=== PATIENT | male | born 1960 | race Caucasian/White ===

== ENCOUNTER 2020-07-18 13:36 | Inpatient (IN) | payer MEDICARE, OTHER ==
[~2020-07-18] VITALS: Ht 172.7 cm; Wt 64.0 kg
[2020-07-18] MEDS ORDERED: D5NS/KCL 20MEQ 1,000 ML IV SCH (13:45)
[2020-07-18] MEDS ORDERED: LACTATED RINGER'S 1,000 ML ONE (14:33)
[2020-07-18 14:40] LABS: BASOPHILS # (AUTO) 0.1 (0.0-0.1); BASOPHILS % 0.5 % (0.0-1.0); EOSINOPHILS # (AUTO) 0.3 (0.0-0.4); HEMOGLOBIN 10.8 g/dL (14.0-18.0); LYMPHOCYTES # (AUTO) 1.3 (1.0-3.2); MEAN CORPUSCULAR HEMOGLOBIN 28.5 pg (28-32); MEAN CORPUSCULAR HGB CONC 29.2 g/dL (31-35); MEAN CORPUSCULAR VOLUME 97.6 fL (81-99); MONOCYTES # (AUTO) 1.7 (0.2-0.8); NEUTROPHILS # (AUTO) 13.1 (2.1-6.9); NEUTROPHILS % 78.7 % (38.7-80.0); PLATELET COUNT 392 x10e3/uL (140-360); RED BLOOD COUNT 3.79 x10e6/uL (4.3-5.7); RED CELL DISTRIBUTION WIDTH 17.2 % (11.7-14.4)
[2020-07-18] MEDS ORDERED: LACTATED RINGER'S 1,000 ML INJ ONE (14:45)
[2020-07-18 15:08] LABS: ALBUMIN 2.9 g/dL (3.5-5.0); ALBUMIN/GLOBULIN RATIO 0.5 (0.8-2.0); ANION GAP 27.7 mmol/L (8-16); CALCIUM 11.3 mg/dL (8.4-10.2); CREATININE, SERUM 4.2 mg/dL (0.72-1.25)
[2020-07-18 15:15] LABS: POTASSIUM 6.7 mmol/L (3.5-5.1)
[2020-07-18] MEDS ORDERED: LACTATED RINGER'S 1,000 ML INJ SCH (15:30)
[2020-07-18 15:36] LABS: BASOPHILS # (AUTO) 0.1 (0.0-0.1); BASOPHILS % 0.4 % (0.0-1.0); EOSINOPHILS # (AUTO) 0.3 (0.0-0.4); EOSINOPHILS % 2.2 % (0.0-6.0); HEMATOCRIT 33.2 % (38.2-49.6); HEMOGLOBIN 9.5 g/dL (14.0-18.0); LYMPHOCYTES # (AUTO) 1.1 (1.0-3.2); LYMPHOCYTES % 7.8 % (18.0-39.1); MEAN CORPUSCULAR HGB CONC 28.6 g/dL (31-35); MEAN CORPUSCULAR VOLUME 97.9 fL (81-99); MONOCYTES # (AUTO) 1.5 (0.2-0.8); MONOCYTES % 10.5 % (4.4-11.3); NEUTROPHILS # (AUTO) 11.2 (2.1-6.9); NEUTROPHILS % 78.4 % (38.7-80.0); PLATELET COUNT 337 x10e3/uL (140-360); RED BLOOD COUNT 3.39 x10e6/uL (4.3-5.7); RED CELL DISTRIBUTION WIDTH 17.1 % (11.7-14.4)
[2020-07-18 15:58] LABS: ALBUMIN 2.7 g/dL (3.5-5.0); ALBUMIN/GLOBULIN RATIO 0.6 (0.8-2.0); ANION GAP 27.5 mmol/L (8-16); CALCIUM 10.5 mg/dL (8.4-10.2); CREATININE, SERUM 4.04 mg/dL (0.72-1.25)
[2020-07-18 16:00] LABS: POTASSIUM 6.5 mmol/L (3.5-5.1)
[2020-07-18] MEDS ORDERED: SOD POLYSTYRENE SULFONATE SUSP 15 GM/60 ML BTL PR ONE (16:15)
[2020-07-18] MEDS ORDERED: DEXTROSE 5%/0.45% SOD CHL 1,000 ML IV ONE ×2 (16:15→16:30)
[2020-07-18] MEDS ORDERED: PIPERACILLIN/TAZO 4.5 GM 100 ML IV STA (16:18)
[2020-07-18] MEDS ORDERED: SODIUM CHLORIDE 0.9% 500ML 500 ML IV STA (16:18)
[2020-07-18] MEDS ORDERED: SODIUM CHLORIDE 0.9% 500ML 500 ML ONE (16:29)
[2020-07-18] MEDS: CEFEPIME 1GM/NS 0.9% 50 ML 50 ML IV SCH (16:45)
[2020-07-18] MEDS ORDERED: ONDANSETRON HCL INJ 2MG/ML 2ML 2 MG/ML VIAL IV PRN (17:00)
[2020-07-18] MEDS ORDERED: CEFEPIME 1GM/NS 0.9% 50 ML 50 ML IV SCH (17:00)
[2020-07-18] MEDS ORDERED: VANCOMYCIN 1GM/NS 250 ML 250 ML IV ONE (17:30)
[2020-07-18 18:40] LABS: CLARITY,URINE SL CLOUDY (CLEAR); COLOR,URINE STRAW (YELLOW); KETONES,URINE NEGATIVE (NEGATIVE); LEUKOCYTE ESTERASE ,URINE SMALL (NEGATIVE); NITRITE,URINE NEGATIVE (NEGATIVE); PROTEIN,URINE DIPSTICK 2+ (NEGATIVE); URINE UROBILINOGEN 0.2 mg/dL (0.2 - 1)
[2020-07-18 18:55] LABS: AMORPHOUS SEDIMENT,URINE MODERATE (FEW); BACTERIA,URINE MODERATE /HPF; RBC,URINE 0-5 /HPF (0-5)
[2020-07-18 19:25] LABS: ALBUMIN 2.4 g/dL (3.5-5.0); ALBUMIN/GLOBULIN RATIO 0.6 (0.8-2.0); ANION GAP 21.8 mmol/L (8-16); CALCIUM 9.6 mg/dL (8.4-10.2); CREATININE, SERUM 3.7 mg/dL (0.72-1.25)
[2020-07-18 19:26] LABS: POTASSIUM 5.8 mmol/L (3.5-5.1)
[2020-07-18] MEDS: DEXTROSE 5% 1,000 ML IV SCH (23:20)
[2020-07-19 04:00] LABS: BASOPHILS % 0.3 % (0.0-1.0); EOSINOPHILS # (AUTO) 0.5 (0.0-0.4); HEMATOCRIT 28.2 % (38.2-49.6); HEMOGLOBIN 8.3 g/dL (14.0-18.0); LYMPHOCYTES % 7.9 % (18.0-39.1); MEAN CORPUSCULAR HEMOGLOBIN 28.6 pg (28-32); MEAN CORPUSCULAR HGB CONC 29.4 g/dL (31-35); MEAN CORPUSCULAR VOLUME 97.2 fL (81-99); MONOCYTES # (AUTO) 1.1 (0.2-0.8); MONOCYTES % 8.5 % (4.4-11.3); NEUTROPHILS # (AUTO) 10.1 (2.1-6.9); NEUTROPHILS % 78.8 % (38.7-80.0); PLATELET COUNT 286 x10e3/uL (140-360); RED CELL DISTRIBUTION WIDTH 17.2 % (11.7-14.4)
[2020-07-19 04:28] LABS: ANION GAP 20.8 mmol/L (8-16); CALCIUM 9.6 mg/dL (8.4-10.2); CREATININE, SERUM 3.72 mg/dL (0.72-1.25)
[2020-07-19 04:29] LABS: POTASSIUM 5.8 mmol/L (3.5-5.1)
[2020-07-19] MEDS: DEXTROSE 5% 1,000 ML IV SCH ×3 (07:28→21:09)
[2020-07-19] MEDS: CEFEPIME 1GM/NS 0.9% 50 ML 50 ML IV SCH ×2 (09:41→23:34)
[2020-07-19] MEDS: METRONIDAZOLE 500MG/NS 100ML 100 ML IV SCH ×2 (12:53→18:25)
[2020-07-19] MEDS ORDERED: SOD POLYSTYRENE SULFONATE SUSP 15 GM/60 ML BTL NG ONE (15:15)
[2020-07-19] MEDS: VASOPRESSIN 60 UNIT in DEXTROSE 5% 50ML 57 ML IV SCH (19:41)
[2020-07-19 20:45] LABS: ALBUMIN 2.1 g/dL (3.5-5.0); ALBUMIN/GLOBULIN RATIO 0.5 (0.8-2.0); ANION GAP 19.9 mmol/L (8-16); CALCIUM 9.5 mg/dL (8.4-10.2); CREATININE, SERUM 3.66 mg/dL (0.72-1.25); POTASSIUM 4.9 mmol/L (3.5-5.1)
[2020-07-19 21:45] VITALS: BP 85/55
[2020-07-19 23:00] VITALS: BP 96/60
[2020-07-20] VITALS (27 sets, daily range): BP systolic 79–108; BP diastolic 47–79
[2020-07-20] MEDS: METRONIDAZOLE 500MG/NS 100ML 100 ML IV SCH ×4 (00:23→17:30)
[2020-07-20] MEDS: DEXTROSE 5% 1,000 ML IV SCH ×2 (03:45→11:17)
[2020-07-20 05:16] LABS: BASOPHILS % 0.1 % (0.0-1.0); EOSINOPHILS # (AUTO) 0.6 (0.0-0.4); EOSINOPHILS % 5.3 % (0.0-6.0); HEMATOCRIT 26.7 % (38.2-49.6); HEMOGLOBIN 7.7 g/dL (14.0-18.0); LYMPHOCYTES # (AUTO) 0.8 (1.0-3.2); LYMPHOCYTES % 7.2 % (18.0-39.1); MEAN CORPUSCULAR HEMOGLOBIN 28.5 pg (28-32); MEAN CORPUSCULAR HGB CONC 28.8 g/dL (31-35); MEAN CORPUSCULAR VOLUME 98.9 fL (81-99); MONOCYTES % 8.4 % (4.4-11.3); NEUTROPHILS # (AUTO) 8.9 (2.1-6.9); NEUTROPHILS % 78.4 % (38.7-80.0); PLATELET COUNT 240 x10e3/uL (140-360); RED CELL DISTRIBUTION WIDTH 16.9 % (11.7-14.4)
[2020-07-20] MEDS: PANTOPRAZOLE 40 MG 10ML VIAL IV SCH ×2 (05:37→16:10)
[2020-07-20 05:54] LABS: ALBUMIN/GLOBULIN RATIO 0.5 (0.8-2.0); ANION GAP 19.4 mmol/L (8-16); CALCIUM 8.9 mg/dL (8.4-10.2); CREATININE, SERUM 3.39 mg/dL (0.72-1.25); POTASSIUM 4.4 mmol/L (3.5-5.1)
[2020-07-20] MEDS: CEFEPIME 1GM/NS 0.9% 50 ML 50 ML IV SCH ×2 (08:01→20:44)
[2020-07-20] MEDS: VASOPRESSIN 60 UNIT in DEXTROSE 5% 50ML 57 ML IV SCH (10:04)
[2020-07-20] MEDS: LACTATED RINGER'S 1,000 ML INJ SCH ×2 (14:40→23:14)
[2020-07-20] MEDS: MIDODRINE HCL 5 MG TABLET PO SCH (21:03)
[2020-07-21] VITALS (23 sets, daily range): BP systolic 15–117; BP diastolic 45–69
[2020-07-21] MEDS: METRONIDAZOLE 500MG/NS 100ML 100 ML IV SCH ×5 (00:11→23:59)
[2020-07-21] MEDS: PANTOPRAZOLE 40 MG 10ML VIAL IV SCH ×2 (05:31→17:46)
[2020-07-21] MEDS: MIDODRINE HCL 5 MG TABLET PO SCH ×3 (05:31→21:30)
[2020-07-21] MEDS: VASOPRESSIN 60 UNIT in DEXTROSE 5% 50ML 57 ML IV SCH (05:32)
[2020-07-21 05:33] LABS: BASOPHILS % 0.1 % (0.0-1.0); EOSINOPHILS # (AUTO) 0.5 (0.0-0.4); HEMATOCRIT 24.3 % (38.2-49.6); HEMOGLOBIN 7.1 g/dL (14.0-18.0); LYMPHOCYTES # (AUTO) 0.8 (1.0-3.2); LYMPHOCYTES % 8.3 % (18.0-39.1); MEAN CORPUSCULAR HEMOGLOBIN 28.5 pg (28-32); MEAN CORPUSCULAR HGB CONC 29.2 g/dL (31-35); MEAN CORPUSCULAR VOLUME 97.6 fL (81-99); MONOCYTES # (AUTO) 0.9 (0.2-0.8); MONOCYTES % 9.1 % (4.4-11.3); NEUTROPHILS # (AUTO) 7.3 (2.1-6.9); NEUTROPHILS % 76.3 % (38.7-80.0); PLATELET COUNT 214 x10e3/uL (140-360); RED BLOOD COUNT 2.49 x10e6/uL (4.3-5.7); RED CELL DISTRIBUTION WIDTH 16.4 % (11.7-14.4)
[2020-07-21 06:01] LABS: ALBUMIN 1.8 g/dL (3.5-5.0); ALBUMIN/GLOBULIN RATIO 0.5 (0.8-2.0); CALCIUM 8.6 mg/dL (8.4-10.2); CREATININE, SERUM 2.64 mg/dL (0.72-1.25)
[2020-07-21] MEDS: LACTATED RINGER'S 1,000 ML INJ SCH ×3 (07:01→22:15)
[2020-07-21] MEDS: CEFEPIME 1GM/NS 0.9% 50 ML 50 ML IV SCH ×2 (08:30→21:30)
[2020-07-21] MEDS ORDERED: VASOPRESSIN 60 UNIT in DEXTROSE 5% 50ML 57 ML IV PRN (10:00)
[2020-07-21] MEDS: ALBUMIN 25% 25GM 100ML 0.25 GM/ML BTL IV SCH ×3 (12:12→23:58)
[2020-07-21] MEDS ORDERED: EPOETIN ALFA-EPBX 10,000 UNIT/ML VIAL SC SCH (14:30)
[2020-07-22] VITALS (26 sets, daily range): BP systolic 81–125; BP diastolic 48–70
[2020-07-22] MEDS: PANTOPRAZOLE 40 MG 10ML VIAL IV SCH ×2 (05:45→17:32)
[2020-07-22 05:56] LABS: BASOPHILS % 0.1 % (0.0-1.0); EOSINOPHILS # (AUTO) 0.6 (0.0-0.4); EOSINOPHILS % 5.4 % (0.0-6.0); LYMPHOCYTES # (AUTO) 0.8 (1.0-3.2); LYMPHOCYTES % 7.4 % (18.0-39.1); MEAN CORPUSCULAR HEMOGLOBIN 28.6 pg (28-32); MEAN CORPUSCULAR HGB CONC 29.9 g/dL (31-35); MEAN CORPUSCULAR VOLUME 95.7 fL (81-99); MONOCYTES # (AUTO) 1.1 (0.2-0.8); NEUTROPHILS # (AUTO) 7.7 (2.1-6.9); NEUTROPHILS % 75.1 % (38.7-80.0); PLATELET COUNT 180 x10e3/uL (140-360); RED BLOOD COUNT 2.34 x10e6/uL (4.3-5.7); RED CELL DISTRIBUTION WIDTH 16.3 % (11.7-14.4)
[2020-07-22] MEDS: MIDODRINE HCL 5 MG TABLET PO SCH ×3 (06:06→21:19)
[2020-07-22] MEDS: METRONIDAZOLE 500MG/NS 100ML 100 ML IV SCH ×4 (06:06→23:57)
[2020-07-22 06:11] LABS: HEMATOCRIT 22.4 % (38.2-49.6); HEMOGLOBIN 6.7 g/dL (14.0-18.0)
[2020-07-22] MEDS: LACTATED RINGER'S 1,000 ML INJ SCH ×2 (06:17→14:45)
[2020-07-22 06:24] LABS: ALBUMIN 2.6 g/dL (3.5-5.0); ALBUMIN/GLOBULIN RATIO 0.9 (0.8-2.0); ANION GAP 14.8 mmol/L (8-16); CALCIUM 8.4 mg/dL (8.4-10.2); CREATININE, SERUM 2.07 mg/dL (0.72-1.25); POTASSIUM 3.8 mmol/L (3.5-5.1)
[2020-07-22] MEDS ORDERED: SODIUM CHLORIDE 0.9% 250ML 250 ML IV ONE (07:15)
[2020-07-22] MEDS ORDERED: SODIUM CHLORIDE 0.9% 250ML 250 ML ONE (07:42)
[2020-07-22] MEDS: CEFEPIME 1GM/NS 0.9% 50 ML 50 ML IV SCH ×2 (08:44→21:19)
[2020-07-22] MEDS: SODIUM HYPOCHLORITE 0.25% 480 ML SOLN IR SCH (08:44)
[2020-07-22] MEDS ORDERED: SODIUM CHLORIDE 0.9% 250ML 250 ML IV SCH (15:15)
[2020-07-22] MEDS: VASOPRESSIN 60 UNIT in DEXTROSE 5% 50ML 57 ML IV PRN (16:00)
[2020-07-23] VITALS (14 sets, daily range): BP systolic 85–117; BP diastolic 52–68
[2020-07-23] MEDS: LACTATED RINGER'S 1,000 ML INJ SCH ×3 (01:35→15:52)
[2020-07-23] MEDS: METRONIDAZOLE 500MG/NS 100ML 100 ML IV SCH ×3 (05:14→18:00)
[2020-07-23] MEDS: MIDODRINE HCL 5 MG TABLET PO SCH ×3 (05:14→22:00)
[2020-07-23] MEDS: PANTOPRAZOLE 40 MG 10ML VIAL IV SCH ×2 (05:14→17:00)
[2020-07-23 05:41] LABS: BASOPHILS % 0.1 % (0.0-1.0); EOSINOPHILS # (AUTO) 0.6 (0.0-0.4); EOSINOPHILS % 4.3 % (0.0-6.0); HEMATOCRIT 26.9 % (38.2-49.6); HEMOGLOBIN 8.3 g/dL (14.0-18.0); LYMPHOCYTES # (AUTO) 0.8 (1.0-3.2); LYMPHOCYTES % 6.2 % (18.0-39.1); MEAN CORPUSCULAR HGB CONC 30.9 g/dL (31-35); MEAN CORPUSCULAR VOLUME 94.1 fL (81-99); MONOCYTES # (AUTO) 1.5 (0.2-0.8); MONOCYTES % 11.4 % (4.4-11.3); NEUTROPHILS # (AUTO) 10.3 (2.1-6.9); NEUTROPHILS % 76.9 % (38.7-80.0); PLATELET COUNT 198 x10e3/uL (140-360); RED BLOOD COUNT 2.86 x10e6/uL (4.3-5.7); RED CELL DISTRIBUTION WIDTH 16.2 % (11.7-14.4)
[2020-07-23 06:24] LABS: ANION GAP 14.6 mmol/L (8-16); CALCIUM 8.4 mg/dL (8.4-10.2); CREATININE, SERUM 1.8 mg/dL (0.72-1.25); MAGNESIUM 1.4 MG/DL (1.3-2.1); PHOSPHORUS 2.1 MG/DL (2.3-4.7); POTASSIUM 3.6 mmol/L (3.5-5.1)
[2020-07-23] MEDS: SODIUM HYPOCHLORITE 0.25% 480 ML SOLN IR SCH (07:56)
[2020-07-23] MEDS: CEFEPIME 1GM/NS 0.9% 50 ML 50 ML IV SCH ×2 (07:56→21:00)
[2020-07-23] MEDS ORDERED: POTASSIUM PHOSPHATE 15 MM in SODIUM CHLORIDE 0.9% 250ML 250 ML IV ONE (11:00)
[2020-07-23] MEDS: SODIUM BICARBONATE 650 MG TAB PO SCH (12:14)
[2020-07-23] MEDS: ACETAMINOPHEN 325 MG TAB PEG PRN (14:22)
[2020-07-24] VITALS (9 sets, daily range): BP systolic 90–117; BP diastolic 55–76
[2020-07-24] MEDS: METRONIDAZOLE 500MG/NS 100ML 100 ML IV SCH ×3 (00:20→15:04)
[2020-07-24] MEDS: PANTOPRAZOLE 40 MG 10ML VIAL IV SCH ×2 (05:00→17:30)
[2020-07-24] MEDS: LACTATED RINGER'S 1,000 ML INJ SCH ×2 (05:12→21:00)
[2020-07-24] MEDS: MIDODRINE HCL 5 MG TABLET PO SCH ×3 (06:00→21:03)
[2020-07-24 06:21] LABS: BASOPHILS % 0.1 % (0.0-1.0); EOSINOPHILS # (AUTO) 0.8 (0.0-0.4); EOSINOPHILS % 5.8 % (0.0-6.0); HEMATOCRIT 29.2 % (38.2-49.6); HEMOGLOBIN 9.1 g/dL (14.0-18.0); LYMPHOCYTES # (AUTO) 0.9 (1.0-3.2); LYMPHOCYTES % 7.1 % (18.0-39.1); MEAN CORPUSCULAR HEMOGLOBIN 29.3 pg (28-32); MEAN CORPUSCULAR HGB CONC 31.2 g/dL (31-35); MEAN CORPUSCULAR VOLUME 93.9 fL (81-99); MONOCYTES # (AUTO) 1.4 (0.2-0.8); MONOCYTES % 10.3 % (4.4-11.3); NEUTROPHILS % 75.5 % (38.7-80.0); PLATELET COUNT 207 x10e3/uL (140-360); RED BLOOD COUNT 3.11 x10e6/uL (4.3-5.7); RED CELL DISTRIBUTION WIDTH 16.5 % (11.7-14.4)
[2020-07-24 06:25] LABS: ANION GAP 13.9 mmol/L (8-16); CALCIUM 8.3 mg/dL (8.4-10.2); CREATININE, SERUM 1.62 mg/dL (0.72-1.25); MAGNESIUM 1.2 MG/DL (1.3-2.1); PHOSPHORUS 2.5 MG/DL (2.3-4.7); POTASSIUM 3.9 mmol/L (3.5-5.1)
[2020-07-24] MEDS: SODIUM HYPOCHLORITE 0.25% 480 ML SOLN IR SCH (09:00)
[2020-07-24] MEDS: SODIUM BICARBONATE 650 MG TAB PO SCH (09:30)
[2020-07-24] MEDS: CEFEPIME 1GM/NS 0.9% 50 ML 50 ML IV SCH ×2 (09:30→21:00)
[2020-07-25] VITALS (10 sets, daily range): BP systolic 97–116; BP diastolic 54–70
[2020-07-25] MEDS: PANTOPRAZOLE 40 MG 10ML VIAL IV SCH ×2 (05:00→18:18)
[2020-07-25] MEDS: MIDODRINE HCL 5 MG TABLET PO SCH ×3 (05:09→23:53)
[2020-07-25] MEDS: LACTATED RINGER'S 1,000 ML INJ SCH ×3 (07:52→23:53)
[2020-07-25] MEDS: SODIUM HYPOCHLORITE 0.25% 480 ML SOLN IR SCH (10:34)
[2020-07-25] MEDS: CEFEPIME 1GM/NS 0.9% 50 ML 50 ML IV SCH (10:37)
[2020-07-25] MEDS: SODIUM BICARBONATE 650 MG TAB PO SCH (10:37)
[2020-07-25] MEDS: MEROPENEM 1GM 100 ML IV SCH (18:17)
[2020-07-26] VITALS (11 sets, daily range): BP systolic 103–112; BP diastolic 41–76
[2020-07-26] MEDS: PANTOPRAZOLE 40 MG 10ML VIAL IV SCH ×2 (05:07→17:29)
[2020-07-26] MEDS: MIDODRINE HCL 5 MG TABLET PO SCH ×3 (05:07→21:41)
[2020-07-26 07:07] LABS: BASOPHILS % 0.2 % (0.0-1.0); EOSINOPHILS # (AUTO) 0.7 (0.0-0.4); EOSINOPHILS % 4.9 % (0.0-6.0); HEMATOCRIT 26.8 % (38.2-49.6); HEMOGLOBIN 8.2 g/dL (14.0-18.0); LYMPHOCYTES # (AUTO) 1.1 (1.0-3.2); LYMPHOCYTES % 8.4 % (18.0-39.1); MEAN CORPUSCULAR HEMOGLOBIN 28.6 pg (28-32); MEAN CORPUSCULAR HGB CONC 30.6 g/dL (31-35); MEAN CORPUSCULAR VOLUME 93.4 fL (81-99); MONOCYTES # (AUTO) 1.3 (0.2-0.8); MONOCYTES % 9.7 % (4.4-11.3); NEUTROPHILS # (AUTO) 10.2 (2.1-6.9); NEUTROPHILS % 75.7 % (38.7-80.0); PLATELET COUNT 247 x10e3/uL (140-360); RED BLOOD COUNT 2.87 x10e6/uL (4.3-5.7)
[2020-07-26 07:28] LABS: ALBUMIN 1.8 g/dL (3.5-5.0); ALBUMIN/GLOBULIN RATIO 0.5 (0.8-2.0); ANION GAP 12.9 mmol/L (8-16); CALCIUM 8.3 mg/dL (8.4-10.2); CREATININE, SERUM 1.39 mg/dL (0.72-1.25); POTASSIUM 3.9 mmol/L (3.5-5.1)
[2020-07-26] MEDS: SODIUM BICARBONATE 650 MG TAB PO SCH (10:00)
[2020-07-26] MEDS: LACTATED RINGER'S 1,000 ML INJ SCH (13:49)
[2020-07-26] MEDS: ACETAMINOPHEN 325 MG TAB PEG PRN (17:29)
[2020-07-26] MEDS: MEROPENEM 1GM 100 ML IV SCH (17:29)
[2020-07-26] MEDS: SODIUM HYPOCHLORITE 0.25% 480 ML SOLN IR SCH (18:37)
[2020-07-27] VITALS (8 sets, daily range): BP systolic 79–119; BP diastolic 53–68
[2020-07-27] MEDS: LACTATED RINGER'S 1,000 ML INJ SCH ×2 (03:25→13:12)
[2020-07-27] MEDS: PANTOPRAZOLE 40 MG 10ML VIAL IV SCH ×2 (04:36→17:00)
[2020-07-27] MEDS: MIDODRINE HCL 5 MG TABLET PO SCH ×3 (05:03→22:10)
[2020-07-27 06:54] LABS: ANION GAP 13.3 mmol/L (8-16); CALCIUM 8.4 mg/dL (8.4-10.2); CREATININE, SERUM 1.4 mg/dL (0.72-1.25); POTASSIUM 4.3 mmol/L (3.5-5.1)
[2020-07-27] MEDS: SODIUM BICARBONATE 650 MG TAB PO SCH (09:00)
[2020-07-27] MEDS: SODIUM HYPOCHLORITE 0.25% 480 ML SOLN IR SCH (09:00)
[2020-07-27] MEDS ORDERED: MAGNESIUM SULFATE 2GM/50ML 50 ML IV ONE (15:45)
[2020-07-27] MEDS: MEROPENEM 1GM 100 ML IV SCH (16:11)
[2020-07-27] MEDS: ACETAMINOPHEN 325 MG TAB PEG PRN (16:11)
[2020-07-27] MEDS ORDERED: MAGNESIUM SULF 1GRAM/DEXTROSE 100 ML IV ONE (18:00)
[2020-07-28] VITALS (23 sets, daily range): BP systolic 77–118; BP diastolic 50–75
[2020-07-28] MEDS: ACETAMINOPHEN 325 MG TAB PEG PRN (02:14)
[2020-07-28] MEDS ORDERED: VASOPRESSIN INJ 20 UNIT/ML VIAL ONE (03:11)
[2020-07-28] MEDS ORDERED: DEXTROSE 5% 50ML 50 ML IV ONE (03:33)
[2020-07-28] MEDS: VASOPRESSIN 60 UNIT in DEXTROSE 5% 50ML 57 ML IV PRN (03:37)
[2020-07-28 06:05] LABS: ANION GAP 16.6 mmol/L (8-16); CALCIUM 8.6 mg/dL (8.4-10.2); CREATININE, SERUM 1.6 mg/dL (0.72-1.25); POTASSIUM 4.6 mmol/L (3.5-5.1)
[2020-07-28] MEDS: LACTATED RINGER'S 1,000 ML INJ SCH (08:01)
[2020-07-28] MEDS: SODIUM BICARBONATE 650 MG TAB PO SCH (08:07)
[2020-07-28] MEDS: SODIUM HYPOCHLORITE 0.25% 480 ML SOLN IR SCH (08:07)
[2020-07-28] MEDS: MAGNESIUM OXIDE 400 MG TAB PO SCH ×2 (08:07→14:57)
[2020-07-28] MEDS: MIDODRINE HCL 5 MG TABLET PO SCH ×3 (08:07→22:00)
[2020-07-28] MEDS: PANTOPRAZOLE 40 MG 10ML VIAL IV SCH ×2 (08:07→14:57)
[2020-07-28] MEDS ORDERED: PROPOFOL IV EMULSION 10 MG/ML 20 ML VIAL ONE (12:07)
[2020-07-28] MEDS ORDERED: LIDOCAINE HCL 2% LOCAL INJ 5 ML SDV VIAL INJ ONE (12:07)
[2020-07-28] MEDS: MEROPENEM 1GM 100 ML IV SCH (14:57)
[2020-07-28] MEDS: HEPARIN SOD (PORCINE) 5,000 UNIT/ML VIAL SC SCH (22:02)
[2020-07-28] MEDS: ACETAMINOPHEN 1000 MG/100 ML IV PRN (22:35)
[2020-07-28] MEDS ORDERED: CEFAZOLIN SOD 1 GM/NS 50ML 50 ML IV ONE (23:00)
[2020-07-29] VITALS (24 sets, daily range): BP systolic 77–120; BP diastolic 54–87
[2020-07-29] MEDS: PANTOPRAZOLE 40 MG 10ML VIAL IV SCH ×2 (05:00→16:20)
[2020-07-29] MEDS: VASOPRESSIN 60 UNIT in DEXTROSE 5% 50ML 57 ML IV PRN (05:00)
[2020-07-29 05:17] LABS: BASOPHILS # (AUTO) 0.1 (0.0-0.1); BASOPHILS % 0.3 % (0.0-1.0); EOSINOPHILS # (AUTO) 0.2 (0.0-0.4); EOSINOPHILS % 1.6 % (0.0-6.0); HEMATOCRIT 25.5 % (38.2-49.6); HEMOGLOBIN 7.7 g/dL (14.0-18.0); LYMPHOCYTES # (AUTO) 1.2 (1.0-3.2); LYMPHOCYTES % 7.8 % (18.0-39.1); MEAN CORPUSCULAR HEMOGLOBIN 28.7 pg (28-32); MEAN CORPUSCULAR HGB CONC 30.2 g/dL (31-35); MEAN CORPUSCULAR VOLUME 95.1 fL (81-99); MONOCYTES # (AUTO) 1.5 (0.2-0.8); NEUTROPHILS # (AUTO) 11.7 (2.1-6.9); NEUTROPHILS % 79.4 % (38.7-80.0); PLATELET COUNT 287 x10e3/uL (140-360); RED BLOOD COUNT 2.68 x10e6/uL (4.3-5.7); RED CELL DISTRIBUTION WIDTH 16.8 % (11.7-14.4)
[2020-07-29 05:39] LABS: ALBUMIN 1.9 g/dL (3.5-5.0); ALBUMIN/GLOBULIN RATIO 0.5 (0.8-2.0); ANION GAP 18.3 mmol/L (8-16); CALCIUM 8.9 mg/dL (8.4-10.2); CREATININE, SERUM 1.74 mg/dL (0.72-1.25); POTASSIUM 4.3 mmol/L (3.5-5.1)
[2020-07-29] MEDS: MIDODRINE HCL 5 MG TABLET PO SCH ×3 (06:00→22:40)
[2020-07-29] MEDS: MAGNESIUM OXIDE 400 MG TAB PO SCH ×2 (07:08→16:20)
[2020-07-29] MEDS: SODIUM BICARBONATE 650 MG TAB PO SCH (07:08)
[2020-07-29] MEDS: HEPARIN SOD (PORCINE) 5,000 UNIT/ML VIAL SC SCH ×2 (08:32→22:40)
[2020-07-29] MEDS: SODIUM HYPOCHLORITE 0.25% 480 ML SOLN IR SCH (15:08)
[2020-07-29] MEDS: MEROPENEM 1GM 100 ML IV SCH (16:20)
[2020-07-29] MEDS ORDERED: ACETAMINOPHEN 1000 MG/100 ML 100 ML IV ONE (19:35)
[2020-07-29] MEDS: ACETAMINOPHEN 1000 MG/100 ML IV PRN (20:02)
[2020-07-30] VITALS (24 sets, daily range): BP systolic 91–117; BP diastolic 56–82
[2020-07-30] MEDS: PANTOPRAZOLE 40 MG 10ML VIAL IV SCH ×2 (06:32→17:31)
[2020-07-30] MEDS: MIDODRINE HCL 5 MG TABLET PO SCH ×3 (06:32→21:16)
[2020-07-30] MEDS: ACETAMINOPHEN 325 MG TAB PEG PRN ×2 (07:33→13:47)
[2020-07-30] MEDS: SODIUM HYPOCHLORITE 0.25% 480 ML SOLN IR SCH (07:34)
[2020-07-30] MEDS: SODIUM BICARBONATE 650 MG TAB PO SCH (07:34)
[2020-07-30] MEDS: MAGNESIUM OXIDE 400 MG TAB PO SCH ×2 (07:34→17:31)
[2020-07-30] MEDS: HEPARIN SOD (PORCINE) 5,000 UNIT/ML VIAL SC SCH ×2 (07:34→21:16)
[2020-07-30 07:38] LABS: BASOPHILS # (AUTO) 0.1 (0.0-0.1); BASOPHILS % 0.4 % (0.0-1.0); EOSINOPHILS # (AUTO) 0.4 (0.0-0.4); EOSINOPHILS % 2.8 % (0.0-6.0); HEMATOCRIT 25.9 % (38.2-49.6); HEMOGLOBIN 7.5 g/dL (14.0-18.0); LYMPHOCYTES % 7.2 % (18.0-39.1); MEAN CORPUSCULAR VOLUME 96.6 fL (81-99); MONOCYTES # (AUTO) 1.3 (0.2-0.8); MONOCYTES % 8.9 % (4.4-11.3); NEUTROPHILS # (AUTO) 11.4 (2.1-6.9); NEUTROPHILS % 80.1 % (38.7-80.0); PLATELET COUNT 323 x10e3/uL (140-360); RED BLOOD COUNT 2.68 x10e6/uL (4.3-5.7); RED CELL DISTRIBUTION WIDTH 16.8 % (11.7-14.4)
[2020-07-30 07:56] LABS: % IRON SATURATION 13 % (15-50); IRON 20 ug/dL (65-175); TOTAL IRON BINDING CAPACITY 153 ug/dL (261-478); TRANSFERRIN 109 mg/dL (174-364)
[2020-07-30 08:03] LABS: ALBUMIN 1.9 g/dL (3.5-5.0); ALBUMIN/GLOBULIN RATIO 0.4 (0.8-2.0); ANION GAP 20.4 mmol/L (8-16); CALCIUM 8.8 mg/dL (8.4-10.2); CREATININE, SERUM 2.13 mg/dL (0.72-1.25); POTASSIUM 4.4 mmol/L (3.5-5.1)
[2020-07-30] MEDS: SODIUM BICARBONATE 8.4% SYRING 50 ML in SODIUM CHLORIDE 0.45% 1,000 ML IV SCH (16:17)
[2020-07-30] MEDS: MEROPENEM 1GM 100 ML IV SCH (17:31)
[2020-07-31] VITALS (24 sets, daily range): BP systolic 90–115; BP diastolic 55–79
[2020-07-31] MEDS: SODIUM BICARBONATE 8.4% SYRING 50 ML in SODIUM CHLORIDE 0.45% 1,000 ML IV SCH (05:28)
[2020-07-31] MEDS: PANTOPRAZOLE 40 MG 10ML VIAL IV SCH ×2 (05:28→17:54)
[2020-07-31] MEDS: MIDODRINE HCL 5 MG TABLET PO SCH ×3 (05:28→21:16)
[2020-07-31 06:46] LABS: ANION GAP 15.9 mmol/L (8-16); CALCIUM 8.2 mg/dL (8.4-10.2); CREATININE, SERUM 1.9 mg/dL (0.72-1.25); POTASSIUM 3.9 mmol/L (3.5-5.1)
[2020-07-31] MEDS: SODIUM HYPOCHLORITE 0.25% 480 ML SOLN IR SCH (07:55)
[2020-07-31] MEDS: HEPARIN SOD (PORCINE) 5,000 UNIT/ML VIAL SC SCH ×2 (07:55→21:16)
[2020-07-31] MEDS: MAGNESIUM OXIDE 400 MG TAB PO SCH ×2 (08:08→17:54)
[2020-07-31] MEDS: SODIUM BICARBONATE 650 MG TAB PO SCH (08:08)
[2020-07-31] MEDS: IRON SUCROSE 100 MG in SODIUM CHLORIDE 0.9% 100 ML 100 ML IV SCH (08:09)
[2020-07-31] MEDS: MEROPENEM 1GM 100 ML IV SCH (17:54)
[2020-08-01] VITALS (12 sets, daily range): BP systolic 94–112; BP diastolic 62–72
[2020-08-01] MEDS: PANTOPRAZOLE 40 MG 10ML VIAL IV SCH (05:47)
[2020-08-01] MEDS: MIDODRINE HCL 5 MG TABLET PO SCH (06:24)
[2020-08-01 07:02] LABS: ANION GAP 12.4 mmol/L (8-16); CREATININE, SERUM 1.37 mg/dL (0.72-1.25); POTASSIUM 3.4 mmol/L (3.5-5.1)
[2020-08-01 07:06] LABS: CALCIUM 6.9 mg/dL (8.4-10.2)
[2020-08-01] MEDS: IRON SUCROSE 100 MG in SODIUM CHLORIDE 0.9% 100 ML 100 ML IV SCH (08:33)
[2020-08-01] MEDS: MAGNESIUM OXIDE 400 MG TAB PO SCH (08:33)
[2020-08-01] MEDS: SODIUM HYPOCHLORITE 0.25% 480 ML SOLN IR SCH (08:33)
[2020-08-01] MEDS: SODIUM BICARBONATE 650 MG TAB PO SCH (08:33)
[2020-08-01] MEDS: HEPARIN SOD (PORCINE) 5,000 UNIT/ML VIAL SC SCH (08:33)
== END 2020-08-01 14:52 | DRG 871 ==
LOC: ER 14:22 → ERHOLD 16:28 → ICU 07-19 21:45 → MED/SURG3 07-23 16:25 → ICU 07-27 21:50 → IMCU 07-29 17:34
PROC: 3E043XZ Introduction of Vasopressor into Central Vein, Percutaneous Approach (ICD-10-PCS; 2020-07-19)
PROC: 5A1945Z Respiratory Ventilation, 24-96 Consecutive Hours (ICD-10-PCS; 2020-07-27)
PROC: 0DJ08ZZ Inspection of Upper Intestinal Tract, Via Natural or Artificial Opening Endoscopic (ICD-10-PCS; 2020-07-28)
PROC: 0DH63UZ Insertion of Feeding Device into Stomach, Percutaneous Approach (ICD-10-PCS; principal; 2020-07-28 19:30)
DX: A41.52 Sepsis due to Pseudomonas (principal); L89.154 Pressure ulcer of sacral region, stage 4; L89.144 Pressure ulcer of left lower back, stage 4; L89.134 Pressure ulcer of right lower back, stage 4; R65.21 Severe sepsis with septic shock; J69.0 Pneumonitis due to inhalation of food and vomit; J15.1 Pneumonia due to Pseudomonas; J96.20 Acute and chronic respiratory failure, unspecified whether with hypoxia or hypercapnia; J96.10 Chronic respiratory failure, unspecified whether with hypoxia or hypercapnia; N17.9 Acute kidney failure, unspecified; E87.2 Acidosis; E87.0 Hyperosmolality and hypernatremia; N39.0 Urinary tract infection, site not specified; E44.0 Moderate protein-calorie malnutrition; Z16.24 Resistance to multiple antibiotics; J90 Pleural effusion, not elsewhere classified; K80.10 Calculus of gallbladder with chronic cholecystitis without obstruction; E87.5 Hyperkalemia; E11.9 Type 2 diabetes mellitus without complications; K21.9 Gastro-esophageal reflux disease without esophagitis; K20.90 Esophagitis, unspecified without bleeding; K29.70 Gastritis, unspecified, without bleeding; Z68.21 Body mass index [BMI] 21.0-21.9, adult; K94.29 Other complications of gastrostomy; D50.9 Iron deficiency anemia, unspecified; L89.620 Pressure ulcer of left heel, unstageable; L89.610 Pressure ulcer of right heel, unstageable; Z20.822 Contact with and (suspected) exposure to COVID-19; E86.0 Dehydration; L89.899 Pressure ulcer of other site, unspecified stage; D50.0 Iron deficiency anemia secondary to blood loss (chronic); E83.42 Hypomagnesemia; Z97.8 Presence of other specified devices; Z74.01 Bed confinement status; E83.39 Other disorders of phosphorus metabolism; B96.5 Pseudomonas (aeruginosa) (mallei) (pseudomallei) as the cause of diseases classified elsewhere
CPT/HCPCS: 36415; 43246; 71045; 74018; 74176; 74230; 76604; 76705; 76770; 78580; 80048; 80053; 81001; 82607; 82746; 83540; 83605; 83735; 84100; 84466; 85025; 85045; 86850; 86900; 86920; 87040; 87070; 87086; 87186; 87205; 93005; 93970; 94002; 94003; 97139; 99251; 99284; A9540; J0690; J0692; J1644; J1756; J2001; J2543; J3370; J3475; J7040; J7050; J7070; J7121; P9016; P9047; U0002

== ENCOUNTER 2020-08-18 08:53 | Inpatient (IN) | payer MEDICARE, OTHER ==
[~2020-08-18] VITALS: Ht 180.3 cm; Wt 58.5 kg
[2020-08-18] MEDS ORDERED: CEFEPIME HCL 1 GM VIAL IV SCH (09:15)
[2020-08-18] MEDS ORDERED: CEFEPIME 1GM/NS 0.9% 50 ML 50 ML IV ONE ×2 (09:30→20:55)
[2020-08-18 10:00] LABS: BASOPHILS # (AUTO) 0.1 (0.0-0.1); BASOPHILS % 0.5 % (0.0-1.0); EOSINOPHILS # (AUTO) 0.6 (0.0-0.4); EOSINOPHILS % 3.4 % (0.0-6.0); HEMATOCRIT 29.9 % (38.2-49.6); HEMOGLOBIN 8.4 g/dL (14.0-18.0); LYMPHOCYTES # (AUTO) 1.7 (1.0-3.2); LYMPHOCYTES % 10.5 % (18.0-39.1); MEAN CORPUSCULAR HEMOGLOBIN 27.8 pg (28-32); MEAN CORPUSCULAR HGB CONC 28.1 g/dL (31-35); MONOCYTES # (AUTO) 1.8 (0.2-0.8); MONOCYTES % 10.9 % (4.4-11.3); NEUTROPHILS # (AUTO) 12.2 (2.1-6.9); NEUTROPHILS % 73.7 % (38.7-80.0); PLATELET COUNT 354 x10e3/uL (140-360); RED BLOOD COUNT 3.02 x10e6/uL (4.3-5.7); RED CELL DISTRIBUTION WIDTH 16.6 % (11.7-14.4)
[2020-08-18] MEDS ORDERED: SODIUM CHLORIDE 0.9% 1000ML 1,000 ML IV STA ×2 (10:04)
[2020-08-18 10:43] LABS: PLATELET ESTIMATE ADEQUATE; PLATELET MORPHOLOGY COMMENT FEW EDTA CLUMPING; RBC MORPHOLOGY COMMENT NORMAL
[2020-08-18 10:44] LABS: HYPOCHROMASIA SLIGHT
[2020-08-18 11:35] LABS: ALBUMIN 2.1 g/dL (3.5-5.0); ALBUMIN/GLOBULIN RATIO 0.4 (0.8-2.0); ANION GAP 18.1 mmol/L (8-16); CALCIUM 11.3 mg/dL (8.4-10.2); CREATININE, SERUM 3.38 mg/dL (0.72-1.25)
[2020-08-18 11:37] LABS: POTASSIUM 6.1 mmol/L (3.5-5.1)
[2020-08-18 11:41] LABS: CREATINE KINASE MB 0.7 ng/mL (0-5.0)
[2020-08-18] MEDS ORDERED: SODIUM BICARBONATE 8.4% INJ 50 ML SYR IV NR (11:45)
[2020-08-18] MEDS ORDERED: CALCIUM GLUCONATE 10% INJ 4.65 MEQ in SODIUM CHLORIDE 0.9% 50ML 50 ML IV ONE (11:45)
[2020-08-18] MEDS ORDERED: INSULIN REGULAR, HUMAN 100 UNIT/1 ML 3ML VIAL IV NR (11:45)
[2020-08-18] MEDS ORDERED: DEXTROSE 50% SYRINGE 50 ML IV STA (11:45)
[2020-08-18] MEDS ORDERED: SOD POLYSTYRENE SULFONATE SUSP 15 GM/60 ML BTL PO ONE (11:45)
[2020-08-18] MEDS: SODIUM CHLORIDE 0.9% 1000ML 1,000 ML IV SCH ×3 (12:11→23:34)
[2020-08-18] MEDS ORDERED: NOREPINEPHRINE INJ 4MG/4ML 8 MG in DEXTROSE 5% 250ML 250 ML IV STA (14:35)
[2020-08-18] MEDS ORDERED: VANCOMYCIN 1GM/NS 250 ML 250 ML IV ONE ×2 (16:00→18:15)
[2020-08-18 16:22] LABS: ANION GAP 17.2 mmol/L (8-16); CALCIUM 11.2 mg/dL (8.4-10.2); CREATININE, SERUM 3.21 mg/dL (0.72-1.25)
[2020-08-18 16:23] LABS: POTASSIUM 5.2 mmol/L (3.5-5.1)
[2020-08-18 18:38] LABS: ALBUMIN/GLOBULIN RATIO 0.4 (0.8-2.0); CREATININE, SERUM 3.17 mg/dL (0.72-1.25)
[2020-08-18 19:03] LABS: CLARITY,URINE SL CLOUDY (CLEAR); COLOR,URINE YELLOW (YELLOW); LEUKOCYTE ESTERASE ,URINE MODERATE (NEGATIVE); NITRITE,URINE NEGATIVE (NEGATIVE); PROTEIN,URINE DIPSTICK 2+ (NEGATIVE)
[2020-08-18 19:04] LABS: KETONES,URINE NEGATIVE (NEGATIVE)
[2020-08-18 19:05] LABS: URINE UROBILINOGEN 0.2 mg/dL (0.2 - 1)
[2020-08-18 19:20] LABS: BACTERIA,URINE FEW /HPF; YEAST,URINE FEW
[2020-08-18 19:45] LABS: CREATINE KINASE MB 0.8 ng/mL (0-5.0)
[2020-08-18] MEDS: NOREPINEPHRINE 8 MG/D5W 250 ML 250 ML IV SCH (20:02)
[2020-08-18] MEDS ORDERED: ZOLPIDEM TARTRATE 5 MG TAB PO PRN (21:00)
[2020-08-18] MEDS ORDERED: CEFEPIME 1GM/NS 0.9% 50 ML 50 ML IV SCH (21:00)
[2020-08-18] MEDS ORDERED: ACETAMINOPHEN 325 MG/10 ML UDC NG PRN (23:00)
[2020-08-18] MEDS ORDERED: SODIUM CHLORIDE 0.9% 1000ML 1,000 ML ONE (23:24)
[2020-08-19 05:34] LABS: BASOPHILS # (AUTO) 0.1 (0.0-0.1); BASOPHILS % 0.4 % (0.0-1.0); EOSINOPHILS # (AUTO) 0.8 (0.0-0.4); EOSINOPHILS % 5.4 % (0.0-6.0); HEMATOCRIT 24.6 % (38.2-49.6); LYMPHOCYTES # (AUTO) 1.3 (1.0-3.2); LYMPHOCYTES % 9.3 % (18.0-39.1); MEAN CORPUSCULAR HEMOGLOBIN 28.1 pg (28-32); MEAN CORPUSCULAR HGB CONC 27.6 g/dL (31-35); MEAN CORPUSCULAR VOLUME 101.7 fL (81-99); MONOCYTES # (AUTO) 1.6 (0.2-0.8); MONOCYTES % 11.4 % (4.4-11.3); NEUTROPHILS # (AUTO) 10.2 (2.1-6.9); NEUTROPHILS % 72.5 % (38.7-80.0); PLATELET COUNT 381 x10e3/uL (140-360); RED BLOOD COUNT 2.42 x10e6/uL (4.3-5.7); RED CELL DISTRIBUTION WIDTH 16.6 % (11.7-14.4)
[2020-08-19 05:38] LABS: HEMOGLOBIN 6.8 g/dL (14.0-18.0)
[2020-08-19] MEDS ORDERED: SODIUM CHLORIDE 0.9% 250ML 250 ML IV ONE (05:45)
[2020-08-19 05:53] LABS: ALBUMIN 1.8 g/dL (3.5-5.0); ALBUMIN/GLOBULIN RATIO 0.3 (0.8-2.0); CALCIUM 10.8 mg/dL (8.4-10.2); CREATININE, SERUM 3.12 mg/dL (0.72-1.25); MAGNESIUM 2.2 MG/DL (1.3-2.1); PHOSPHORUS 4.7 MG/DL (2.3-4.7)
[2020-08-19] MEDS ORDERED: SODIUM CHLORIDE 0.9% 1000ML 1,000 ML ONE (08:06)
[2020-08-19] MEDS ORDERED: SODIUM CHLORIDE 0.9% 250ML 250 ML ONE ×2 (08:59→12:34)
[2020-08-19] MEDS: SODIUM CHLORIDE 0.9% 1000ML 1,000 ML IV SCH ×2 (09:32→17:51)
[2020-08-19] MEDS: CEFEPIME 1GM/NS 0.9% 50 ML 50 ML IV SCH (16:41)
[2020-08-19 19:36] LABS: BASOPHILS # (AUTO) 0.1 (0.0-0.1); BASOPHILS % 0.5 % (0.0-1.0); EOSINOPHILS # (AUTO) 0.8 (0.0-0.4); EOSINOPHILS % 6.4 % (0.0-6.0); HEMATOCRIT 30.3 % (38.2-49.6); HEMOGLOBIN 8.9 g/dL (14.0-18.0); LYMPHOCYTES % 7.8 % (18.0-39.1); MEAN CORPUSCULAR HEMOGLOBIN 29.2 pg (28-32); MEAN CORPUSCULAR HGB CONC 29.4 g/dL (31-35); MEAN CORPUSCULAR VOLUME 99.3 fL (81-99); MONOCYTES # (AUTO) 1.4 (0.2-0.8); MONOCYTES % 10.9 % (4.4-11.3); NEUTROPHILS # (AUTO) 9.6 (2.1-6.9); NEUTROPHILS % 73.4 % (38.7-80.0); PLATELET COUNT 303 x10e3/uL (140-360); RED BLOOD COUNT 3.05 x10e6/uL (4.3-5.7); RED CELL DISTRIBUTION WIDTH 16.1 % (11.7-14.4)
[2020-08-19] MEDS: NOREPINEPHRINE 8 MG/D5W 250 ML 250 ML IV SCH (19:58)
[2020-08-19] MEDS ORDERED: METOPROLOL TARTRATE INJ 1 MG/ML VIAL IV ONE (22:00)
[2020-08-19] MEDS: METOPROLOL TARTRATE INJ 1 MG/ML VIAL IV PRN (22:23)
[2020-08-20] MEDS ORDERED: SODIUM CHLORIDE 0.9% 1000ML 1,000 ML ONE ×3 (00:09→18:36)
[2020-08-20] MEDS: SODIUM CHLORIDE 0.9% 1000ML 1,000 ML IV SCH ×3 (00:15→18:34)
[2020-08-20] MEDS: METOPROLOL TARTRATE INJ 1 MG/ML VIAL IV PRN (04:16)
[2020-08-20] MEDS ORDERED: MIDODRINE HCL5 MG PEG (04:35)
[2020-08-20] MEDS ORDERED: COLLAGENASE1 EACH TOP (04:35)
[2020-08-20] MEDS ORDERED: PEPCID20 MG PEG (04:35)
[2020-08-20] MEDS ORDERED: FEROSUL325 MG PO (04:35)
[2020-08-20] MEDS ORDERED: HEPARIN SO5000 UNIT/ SC (04:35)
[2020-08-20] MEDS ORDERED: LACTULOSE20 GM/30 M PO (04:35)
[2020-08-20] MEDS ORDERED: SODIUM BICARBO650 MG PEG (04:35)
[2020-08-20] MEDS ORDERED: ZOFRAN4 MG PO (04:35)
[2020-08-20] MEDS ORDERED: MAGNESIUM OXID400 MG PEG (04:35)
[2020-08-20] MEDS ORDERED: TYLENOL325 MG PEG (04:35)
[2020-08-20] MEDS: CEFEPIME 1GM/NS 0.9% 50 ML 50 ML IV SCH ×2 (04:51→18:34)
[2020-08-20 05:51] LABS: BASOPHILS # (AUTO) 0.1 (0.0-0.1); BASOPHILS % 0.6 % (0.0-1.0); EOSINOPHILS # (AUTO) 0.6 (0.0-0.4); HEMATOCRIT 30.1 % (38.2-49.6); HEMOGLOBIN 8.8 g/dL (14.0-18.0); LYMPHOCYTES % 7.8 % (18.0-39.1); MEAN CORPUSCULAR HEMOGLOBIN 28.9 pg (28-32); MEAN CORPUSCULAR HGB CONC 29.2 g/dL (31-35); MEAN CORPUSCULAR VOLUME 98.7 fL (81-99); MONOCYTES # (AUTO) 1.5 (0.2-0.8); MONOCYTES % 11.6 % (4.4-11.3); NEUTROPHILS # (AUTO) 9.6 (2.1-6.9); NEUTROPHILS % 74.1 % (38.7-80.0); PLATELET COUNT 325 x10e3/uL (140-360); RED BLOOD COUNT 3.05 x10e6/uL (4.3-5.7); RED CELL DISTRIBUTION WIDTH 16.4 % (11.7-14.4)
[2020-08-20 06:27] LABS: ANION GAP 17.8 mmol/L (8-16); CALCIUM 10.2 mg/dL (8.4-10.2); CREATININE, SERUM 2.94 mg/dL (0.72-1.25); POTASSIUM 3.8 mmol/L (3.5-5.1)
[2020-08-20 17:42] VITALS: BP 99/64
[2020-08-20 17:43] VITALS: BP 99/64
[2020-08-20 17:50] VITALS: BP 99/64
[2020-08-20 20:00] VITALS: BP 110/77
[2020-08-21] VITALS (9 sets, daily range): BP systolic 87–110; BP diastolic 56–67
[2020-08-21] MEDS ORDERED: SODIUM CHLORIDE 0.9% 1000ML 1,000 ML ONE (01:07)
[2020-08-21] MEDS: SODIUM CHLORIDE 0.9% 1000ML 1,000 ML IV SCH (01:30)
[2020-08-21] MEDS: CEFEPIME 1GM/NS 0.9% 50 ML 50 ML IV SCH ×2 (05:11→16:32)
[2020-08-21 06:23] LABS: BASOPHILS # (AUTO) 0.1 (0.0-0.1); BASOPHILS % 0.5 % (0.0-1.0); EOSINOPHILS # (AUTO) 0.7 (0.0-0.4); EOSINOPHILS % 4.5 % (0.0-6.0); HEMATOCRIT 28.4 % (38.2-49.6); HEMOGLOBIN 8.2 g/dL (14.0-18.0); LYMPHOCYTES # (AUTO) 1.4 (1.0-3.2); LYMPHOCYTES % 9.7 % (18.0-39.1); MEAN CORPUSCULAR HEMOGLOBIN 28.7 pg (28-32); MEAN CORPUSCULAR HGB CONC 28.9 g/dL (31-35); MEAN CORPUSCULAR VOLUME 99.3 fL (81-99); MONOCYTES # (AUTO) 1.8 (0.2-0.8); MONOCYTES % 12.2 % (4.4-11.3); NEUTROPHILS # (AUTO) 10.4 (2.1-6.9); NEUTROPHILS % 71.7 % (38.7-80.0); PLATELET COUNT 321 x10e3/uL (140-360); RED BLOOD COUNT 2.86 x10e6/uL (4.3-5.7); RED CELL DISTRIBUTION WIDTH 16.1 % (11.7-14.4)
[2020-08-21 06:55] LABS: ANION GAP 20.8 mmol/L (8-16); CALCIUM 10.1 mg/dL (8.4-10.2); CREATININE, SERUM 2.67 mg/dL (0.72-1.25); POTASSIUM 3.8 mmol/L (3.5-5.1)
[2020-08-21] MEDS ORDERED: SODIUM CHLORIDE 0.9% 1000ML 1,000 ML IV SCH (11:00)
[2020-08-21] MEDS: SODIUM BICARBONATE 8.4% SYRING 50 ML in SODIUM CHLORIDE 0.45% 1,000 ML IV SCH (16:33)
[2020-08-22] VITALS (9 sets, daily range): BP systolic 85–106; BP diastolic 60–71
[2020-08-22] MEDS: SODIUM BICARBONATE 8.4% SYRING 50 ML in SODIUM CHLORIDE 0.45% 1,000 ML IV SCH ×2 (03:18→14:50)
[2020-08-22] MEDS: CEFEPIME 1GM/NS 0.9% 50 ML 50 ML IV SCH ×2 (05:11→16:21)
[2020-08-22 06:24] LABS: ANION GAP 15.4 mmol/L (8-16); CREATININE, SERUM 2.24 mg/dL (0.72-1.25); POTASSIUM 3.4 mmol/L (3.5-5.1)
[2020-08-22] MEDS: SODIUM HYPOCHLORITE 0.25% 480 ML SOLN IR NR (09:30)
[2020-08-22] MEDS ORDERED: SIMETHICONE 40 MG/0.6 ML BTL PEG PRN (14:30)
[2020-08-22] MEDS: ONDANSETRON HCL INJ 2MG/ML 2ML 2 MG/ML VIAL IV PRN (16:21)
[2020-08-22] MEDS ORDERED: DEXTROSE 50% SYRINGE 50 ML IV ONE (18:37)
[2020-08-22] MEDS ORDERED: DEXTROSE 50% SYRINGE 50 ML IV PRN (18:45)
[2020-08-22] MEDS ORDERED: POTASSIUM CHLORIDE 20MEQ/15ML UDC NG ONE (20:15)
[2020-08-22] MEDS: DEXTROSE 10% 1,000 ML IV SCH (20:51)
[2020-08-22] MEDS ORDERED: METOCLOPRAMIDE HCL 10 MG/2ML VIAL IV SCH (22:00)
[2020-08-23] VITALS (8 sets, daily range): BP systolic 84–98; BP diastolic 57–68
[2020-08-23] MEDS: ONDANSETRON HCL INJ 2MG/ML 2ML 2 MG/ML VIAL IV PRN (02:33)
[2020-08-23] MEDS: SODIUM BICARBONATE 8.4% SYRING 50 ML in SODIUM CHLORIDE 0.45% 1,000 ML IV SCH (03:51)
[2020-08-23] MEDS: CEFEPIME 1GM/NS 0.9% 50 ML 50 ML IV SCH ×2 (04:59→18:01)
[2020-08-23 06:41] LABS: ANION GAP 16.9 mmol/L (8-16); CALCIUM 10.4 mg/dL (8.4-10.2); CREATININE, SERUM 2.42 mg/dL (0.72-1.25)
[2020-08-23] MEDS: METOCLOPRAMIDE HCL 10 MG/2ML VIAL IV SCH ×5 (06:46→23:55)
[2020-08-23 06:57] LABS: POTASSIUM 2.9 mmol/L (3.5-5.1)
[2020-08-23] MEDS ORDERED: POTASSIUM CHLORIDE 20MEQ/100ML 200 ML IV ONE (07:45)
[2020-08-23] MEDS: SODIUM BICARBONATE 650 MG TAB PEG SCH ×2 (09:00→17:00)
[2020-08-23] MEDS: SODIUM HYPOCHLORITE 0.25% 480 ML SOLN IR NR (12:00)
[2020-08-23] MEDS ORDERED: DIATRIZOATE MEGL/DIATRIZOA SOD 30 ML BTL PO ONE ×2 (15:28→15:57)
[2020-08-23] MEDS: DEXTROSE 10% 1,000 ML IV SCH (16:45)
[2020-08-24] MEDS: SODIUM BICARBONATE 8.4% SYRING 50 ML in SODIUM CHLORIDE 0.45% 1,000 ML IV SCH (00:10)
[2020-08-24 00:37] VITALS: BP 79/54
[2020-08-24] MEDS: CEFEPIME 1GM/NS 0.9% 50 ML 50 ML IV SCH (05:03)
[2020-08-24] MEDS: DEXTROSE 10% 1,000 ML IV SCH (05:04)
[2020-08-24 05:44] VITALS: BP 86/57
[2020-08-24] MEDS: METOCLOPRAMIDE HCL 10 MG/2ML VIAL IV SCH ×2 (06:07→11:44)
[2020-08-24 07:10] LABS: ANION GAP 14.1 mmol/L (8-16); CALCIUM 9.4 mg/dL (8.4-10.2); CREATININE, SERUM 2.25 mg/dL (0.72-1.25); POTASSIUM 3.1 mmol/L (3.5-5.1)
[2020-08-24 07:54] LABS: % IRON SATURATION 31 % (15-50); IRON 37 ug/dL (65-175); TOTAL IRON BINDING CAPACITY 120 ug/dL (261-478); TRANSFERRIN 86 mg/dL (174-364)
[2020-08-24 07:58] VITALS: BP 90/54
[2020-08-24 08:05] VITALS: BP 90/54
[2020-08-24] MEDS: SODIUM BICARBONATE 650 MG TAB PEG SCH (11:43)
[2020-08-24] MEDS ORDERED: POTASSIUM CHLORIDE 20 MEQ TAB CR PO ONE (11:45)
[2020-08-24 12:00] VITALS: BP 90/63
== END 2020-08-24 14:11 | DRG 871 ==
LOC: ER 09:00 → UNDOADMIN 10:07 → ERHOLD 10:07 → MED/SURG3 08-20 17:18
PROC: 02HV33Z Insertion of Infusion Device into Superior Vena Cava, Percutaneous Approach (ICD-10-PCS; principal; 2020-08-18)
DX: A41.9 Sepsis, unspecified organism (principal); L89.154 Pressure ulcer of sacral region, stage 4; R65.21 Severe sepsis with septic shock; J69.0 Pneumonitis due to inhalation of food and vomit; N17.9 Acute kidney failure, unspecified; J96.10 Chronic respiratory failure, unspecified whether with hypoxia or hypercapnia; E87.2 Acidosis; D50.0 Iron deficiency anemia secondary to blood loss (chronic); E86.0 Dehydration; K81.1 Chronic cholecystitis; N13.9 Obstructive and reflux uropathy, unspecified; E83.52 Hypercalcemia; E87.6 Hypokalemia; D63.8 Anemia in other chronic diseases classified elsewhere; Z20.822 Contact with and (suspected) exposure to COVID-19
CPT/HCPCS: 36415; 36555; 71045; 74022; 80048; 80053; 81001; 82550; 82553; 82607; 82746; 82948; 83540; 83605; 83735; 84100; 84466; 84484; 85025; 85045; 86850; 86900; 86920; 87040; 87070; 93005; 99251; 99285; J0610; J0692; J1817; J2405; J2765; J3370; J3480; J7030; J7050; J7799; P9016; U0002